=== PATIENT | female | born 1940 | race Hispanic/Latino ===

== ENCOUNTER 2020-01-13 16:40 | Emergency (ER) | payer MEDICARE ==
[2020-01-13 16:44] VITALS: BP 169/60
--- NOTE | 2020-01-13 17:05 | Event Note ---
ED Screening Note ED Screening Note: states that she had a fever for 3 days +body aches +chills +headache no cough no vomiting no diarrhea no CP no abd pain no urinary sx states she took tylenol at 12PM PMHx CKD, HTN, HLD This initial assessment/diagnostic orders/clinical plan/treatment(s) is/are subject to change based on patients health status, clinical progression and re- assessment by fellow clinical providers in the ED. Further treatment and workup at subsequent clinical providers discretion. Patient/guardian urged not to elope from the ED as their condition may be serious if not clinically assessed and managed. Initial orders include: labs, UA, CXR
--- NOTE | 2020-01-13 17:40 | XRay Report ---
CHEST 2 VIEWS INDICATION / CLINICAL INFORMATION: MAIN: fever, chills; pt states she has had fever, chills, and body aches x 3 days denies chest pain, denies cough or SOB had negative covid test yesterday. COMPARISON: None available. FINDINGS: SUPPORT DEVICES: None. HEART / MEDIASTINUM: No significant abnormality. LUNGS / PLEURA: No significant pulmonary or pleural abnormality. No pneumothorax. ADDITIONAL FINDINGS: No significant additional findings. IMPRESSION: 1. No acute findings. Signer Name: Jourdan Charles MD Signed: 01/13/2020 5:36 PM Workstation Name: [id number]
[2020-01-13 17:49] LABS: Basophils % (Auto) 0.2 % (0.0-1.8); Eosinophils # (Auto) 0.1 K/mm3 (0.0-0.4); Eosinophils % (Auto) 0.5 % (0.0-4.3); Hemoglobin 12.2 gm/dl (10.1-14.3); Lymphocytes # (Auto) 1.1 K/mm3 (1.2-5.4); Lymphocytes % (Auto) 10.6 % (13.4-35.0); Mean Corpuscular HGB Conc 34 % (30-34); Mean Corpuscular Volume 90 fl (79-97); Monocytes # (Auto) 0.9 K/mm3 (0.0-0.8); Monocytes % (Auto) 8.7 % (0.0-7.3); Platelet Count 164 K/mm3 (140-440); Red Blood Count 4.01 M/mm3 (3.65-5.03); Red Cell Distribution Width 12.8 % (13.2-15.2)
[2020-01-13 18:11] LABS: Albumin 4.1 g/dL (3.9-5); Calcium 9.4 mg/dL (8.4-10.2)
[2020-01-13] MEDS ORDERED: ACETAMINOPHEN 325 MG TAB PO ONE (21:48)
--- NOTE | 2020-01-13 21:52 | Emergency Department Report ---
HPI - General Chief Complaint: Fever Time Seen by Provider: 01/13/20 17:02 - HPI HPI: 79-year-old female presents to the emergency department with complaint of a 3-day history of a fever with T-max 101 F and generalized body aches. Patient denies any shortness of breath, cough, abdominal pain, dysuria, vaginal discharge, rash, extremity swelling. She took some Tylenol at around noon with some relief. She has a past medical history of stage III chronic kidney disease, hypertension, GERD. The patient had a negative COVID-19 test 2 days ago. Her primary care physician is Dr. Zoila Artis, who told her to come to the emergency department for further evaluation of this persistent fever. No recent travel or sick contacts at home. No known exposure to anyone with Covid 19. ED Past Medical Hx - Past Medical History Previous Medical History?: Yes Hx Hypertension: Yes (36 YRS) Hx GERD: Yes Hx Kidney Stones: Yes Hx Psychiatric Treatment: Yes (depression) Hx HIV: No - Surgical History Past Surgical History?: No Additional Surgical History: tonsillectomy,carotid - Social History Smoking Status: Never Smoker Substance Use Type: None - Medications Home Medications: Home Medications Medication Instructions Recorded Confirmed Last Taken Type Diltiazem HCl [Cartia XT] 300 mg PO QDAY 03/08/16 03/27/16 03/27/16 07:00 History Potassium Chloride [Klor-Con M20] 20 meq PO QDAY 03/08/16 03/27/16 03/26/16 History Adult Low Dose Aspirin EC 81 mg PO DAILY 03/09/16 03/24/16 03/21/16 History Doxazosin 8 mg PO HS 03/09/16 03/27/16 03/26/16 History Labetalol 400 mg PO BID 03/09/16 03/27/16 03/27/16 07:00 History Sertraline 50 mg PO DAILY 03/09/16 03/27/16 03/26/16 History Fluconazole (Nf) [Diflucan TAB] 150 mg PO ONCE 03/24/16 03/24/16 03/23/16 History Multivit-Min/FA/Lycopen/Lutein 1 each PO DAILY 03/24/16 03/27/16 1 Month Ago History [Centrum Silver Tablet] ~02/25/16 Nystatin [Nystatin SUSP] 100,000 unit PO QID 03/24/16 03/27/16 03/26/16 History Pravastatin [Pravachol] 40 mg PO QHS 03/24/16 03/27/16 03/26/16 History ED Review of Systems ROS: Stated complaint: HIGH FEVER/BODYACHES/ABD PAIN Other details as noted in HPI Comment: All other systems reviewed and negative Constitutional: chills, fever Eyes: denies: eye pain, vision change ENT: denies: ear pain, throat pain Respiratory: denies: cough, shortness of breath Cardiovascular: denies: chest pain, palpitations Gastrointestinal: denies: abdominal pain, vomiting Genitourinary: denies: dysuria, discharge Musculoskeletal: myalgia. denies: joint swelling Skin: denies: rash, lesions Neurological: denies: headache, weakness Physical Exam - Physical Exam Vital Signs: Vital Signs 01/13/20 16:40 Temperature 98.5 F Pulse Rate 72 Respiratory 20 Rate Blood Pressure 169/60 [Right] O2 Sat by Pulse 97 Oximetry Physical Exam: GENERAL: The patient is well-developed well-nourished. HENT: Normocephalic. Atraumatic. Patient has moist mucous membranes. EYES: Extraocular motions are intact. NECK: Supple. Trachea is midline. CHEST/LUNGS: Clear to auscultation. There is no respiratory distress noted. HEART/CARDIOVASCULAR: Regular. There is no tachycardia. There is no murmur. ABDOMEN: Abdomen is soft, nontender. Patient has normal bowel sounds. There is no abdominal distention. SKIN: Skin is warm and dry. NEURO: The patient is awake, alert, and oriented. The patient is cooperative. The patient has no focal neurologic deficits. Normal speech. MUSCULOSKELETAL: There is no tenderness or deformity. There is no evidence of acute injury. ED Course Vital Signs 01/13/20 16:40 Temperature 98.5 F Pulse Rate 72 Respiratory 20 Rate Blood Pressure 169/60 [Right] O2 Sat by Pulse 97 Oximetry ED Medical Decision Making - Lab Data Result diagrams: 01/13/20 17:31 01/13/20 17:31 - Radiology Data Radiology results: image reviewed interpreted by me: Chest x-ray does not show any acute process. There are no pleural effusions, obvious pneumonia and there is no pneumothorax. - Medical Decision Making This patient presents with a 3-day history of a fever with a T-max of 101 F and body aches. She has no complaints of any sore throat, cough, chest pain, shortness of breath, abdominal pain. Labs have been unremarkable including CBC, metabolic panel and urinalysis except for some renal insufficiency. However the patient says she is stage III CKD and therefore her renal function appears improved from baseline. A chest x-ray was ordered through triage but it does not show any pneumonia, pneumothorax, focal consolidation, pleural effusions, or any other acute process. Patient's vital signs been stable throughout her ED course here including being afebrile. She was given a dose of Tylenol secondary to her body aches. Patient appears safe for discharge home at this time. While she did have a recent negative COVID-19 test, the patient has been instructed to quarantine and/or self isolate. She has also been recommended to get another Covid test done as the first 1 could be a false negative. Overall the patient has a viral syndrome. She will follow-up with her primary care physician and will return to the ER with any worsening of her symptoms or any acute distress. Critical Care Time: No Critical care attestation.: If time is entered above; I have spent that time in minutes in the direct care of this critically ill patient, excluding procedure time. ED Disposition Clinical Impression: Viral syndrome Hypertension Qualifiers: Hypertension type: essential hypertension Qualified Code(s): I10 - Essential (primary) hypertension CKD (chronic kidney disease) Qualifiers: Chronic kidney disease stage: unspecified stage Qualified Code(s): N18.9 - Chronic kidney disease, unspecified Disposition: DC- TO HOME OR SELFCARE Is pt being admited?: No Condition: Stable Instructions: COVID-19, Chronic Kidney Disease (ED), Viral Syndrome (ED), Hypertension (ED) Additional Instructions: Please follow-up with your primary care physician in the next few days. You can continue to take Tylenol every 4-6 hours, using the dosing on the back of the bottle, as needed for fever or body aches. Make sure you stay hydrated. Return to the emergency department with any worsening of your symptoms, intractable fever, development of shortness of breath or chest pain, or with any acute distress. I know that you had a negative COVID-19 test recently, but you should still quarantine or self isolate and follow the COVID-19 precautions. You may want to get another Covid test done in the next few days. Referrals: PRIMARY CARE, [Primary Care Provider] - 2-3 Days Time of Disposition: 22:41
[2020-01-13 22:04] LABS: Bilirubin,Urine NEG (Negative); Blood,Urine SM (Negative); Color,Urine Amber (Yellow); Hyaline Casts,Urine 3 /LPF; Mucus,Urine FEW /HPF; Urobilinogen,Urine < 2.0 mg/dL (<2.0)
== END 2020-01-13 23:24 | disposition home or self-care (01) ==
LOC: ED 16:40
DX: B34.9 Viral infection, unspecified (principal); I12.9 Hypertensive chronic kidney disease with stage 1 through stage 4 chronic kidney disease, or unspecified chronic kidney disease; N18.9 Chronic kidney disease, unspecified; K21.9 Gastro-esophageal reflux disease without esophagitis; F32.9 Major depressive disorder, single episode, unspecified; Z98.890 Other specified postprocedural states; Z90.89 Acquired absence of other organs; Z79.899 Other long term (current) drug therapy; Z88.8 Allergy status to other drugs, medicaments and biological substances
CPT/HCPCS: 36415; 71046; 80053; 81001; 85025